=== PATIENT | male | born 1990 | race Caucasian/White ===

== ENCOUNTER 2018-11-07 17:46 | Emergency (ER) | payer SELFPAY ==
[~2018-11-07 17:46] MED LIST: [UNRECOGNIZED DRUG - CODE]
--- NOTE | 2018-11-07 18:10 | NUR ---
1809---1ST CALL TO BE TRIATED, PATIENT LEFT WITHOUT BEING SEEN BY DR. RESENDIZ. NO FURTHER CARE PROVIDED FOR PATIENT. 1819---2ND CALL, 1829---3RD CALL
== END 2018-11-07 18:10 | disposition left against medical advice (07) ==
LOC: MED 17:46
DX: Z53.21 Procedure and treatment not carried out due to patient leaving prior to being seen by health care provider (principal)

== ENCOUNTER 2018-11-07 18:42 | Emergency (ER) | payer SELFPAY ==
[~2018-11-07] VITALS: Ht 175.3 cm; Wt 91.2 kg
[2018-11-07 18:55] VITALS: BP 128/72
--- NOTE | 2018-11-07 19:00 | NUR ---
AAO X 4 PT AMBULATE TO BED 4 WITH C/O LT EYE IRRITATIOIN D/T POSSIBLE FORIEGN BODY S/P GRINDING A METAL. DENIES BLURRY VISION OR PAIN AT THIS TIME. PER PT FEELS LIKE A PIECE OF METAL STUCK ON THE PUPIL AND PER PT HE CAN SEE IT. DENIES OTHER INJURY OR PMH RX; NONE
--- NOTE | 2018-11-07 19:14 | NUR ---
report given to ailyn/donald
--- NOTE | 2018-11-07 19:15 | NUR ---
RECEIVED REPORT FROM AM NURSE. PT LAYING IN BED, RR EVEN AND UNLABORED. C/O FOREIGN BODY ON L EYE. AWAITING ER MSE.
--- NOTE | 2018-11-07 20:04 | NUR ---
ER AT BEDSIDE
[2018-11-07] MEDS ORDERED: FLUORESCEIN OPTH STRIP 0.6 MG OP ONE (20:05)
[2018-11-07] MEDS ORDERED: TETRACAINE HCL/PF 0.5% OPTH 4 ML BTL OP ONE (20:05)
--- NOTE | 2018-11-07 20:40 | NUR ---
ER MD AT BEDSIDE FOR L EYE FOREIGN BODY EXTRACTION
[2018-11-07 20:58] VITALS: BP 121/71
--- NOTE | 2018-11-07 20:58 | NUR ---
Patient discharged with v/s stable. Written and verbal after care instructions given and explained. Patient alert, oriented and verbalized understanding of instructions. Ambulatory with steady gait. All questions addressed prior to discharge. ID band removed. Patient advised to follow up with PMD. Rx of NAPROSYN, TOBRACYCIN OPTHALMIC DROPS given. Patient educated on indication of medication including possible reaction and side effects. Opportunity to ask questions provided and answered.
== END 2018-11-07 20:58 | disposition home or self-care (01) ==
LOC: MED 18:42
DX: T15.02XA Foreign body in cornea, left eye, initial encounter (principal); Z23 Encounter for immunization; X58.XXXA Exposure to other specified factors, initial encounter; Y93.89 Activity, other specified; Y92.89 Other specified places as the place of occurrence of the external cause; Y99.8 Other external cause status
CPT/HCPCS: 65222; 90471; 90715; 99284